=== PATIENT | female | born 1980 | race American Indian/Alaskan Native ===

== ENCOUNTER 2021-08-04 20:31 | Emergency (ER) | payer OTHER, BC ==
[2021-08-04 20:50] VITALS: BP 135/88; PULSE 76; TEMP 98.3; BMI 36.8
== END 2021-08-04 23:34 | disposition home or self-care (01) ==
LOC: JERFT 20:31
DX: M25.521 Pain in right elbow (principal); W00.0XXA Fall on same level due to ice and snow, initial encounter
CPT/HCPCS: 73070-TC-RT-FY; 99283-25